=== PATIENT | female | born 1950 | race Caucasian/White ===

== ENCOUNTER 2021-11-25 16:41 | Emergency (ER) | payer OTHER, SELFPAY ==
[2021-11-25 16:58] VITALS: BP 155/78; PULSE 83; RESP 16; TEMP 37.3; O2SAT 99
[2021-11-25] MEDS: DACRIOSE EYE IRRIGATION 118 ML BOTTLE 100 ML LEFT EYE (17:25)
[2021-11-25] MEDS: FLUORESCEIN SOD 1 MG/STRIP EACH EYE (17:25)
--- NOTE | 2021-11-25 17:25 | ED.EYEPROB ---
HPI - Eye Problem General Chief complaint: Eye Problems Stated complaint: left eye pain Time Seen by Provider: 11/25/21 17:25 Source: patient Mode of arrival: ambulatory Limitations: no limitations History of Present Illness HPI Narrative: 71 y/o female presented for c/o left eye pain, onset today. She was driving to work when she felt sharp pain to left eye, she worked for 4 hours then applied Visine eye drops and rubbed the eye which worsened the pain significantly. Since then she has had red, watery eye and worse pain with opening the eye, and blurry vision. Denies headache, dizziness, n/v/f/c.Hx cataract surgery. 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 chief complaint: eye pain Related Data Home Medications Medication Instructions Recorded Confirmed atorvastatin 20 mg PO DAILY 11/25/21 11/25/21 lisinopril-hydrochlorothiazide 1 tablet PO DAILY 11/25/21 11/25/21 Allergies Allergy/AdvReac Type Severity Reaction Status Date / Time No Known Allergies Allergy Mild Unverified 12/16/18 15:44 Review of Systems Review of Systems: CONSTITUTIONAL: Denies body aches, fever, chills EYES:Endorses redness and pain to left eye, FB sensation, photophobia blurry vision ENT: Denies rhinorrhea, congestion, sore throat, or otalgia. CARDIOVASCULAR: Denies chest pain, palpitations RESPIRATORY: Denies cough or dyspnea. GASTROINTESTINAL: Denies abdominal pain, nausea, vomiting, or diarrhea. SKIN: Denies rash, itching, or wounds. MUSCULOSKELETAL: Denies back pain, joint pain, or myalgia. NEUROLOGIC: Denies headache, numbness, tingling, or weakness. PSYCH: Denies depression or anxiety. All systems reviewed & are unremarkable except as noted in HPI and below [facility] Comments At time of signature, I have reviewed and agree with nursing past medical, surgical, social and family history unless otherwise noted. Please see nursing chart for further information. There is no relevant family history pertinent to the presenting complaint Exam Narrative: GENERAL: appears in pain, no acute distress. HEAD: Normocephalic, atraumatic. EYES: left conjunctival injection, tearing, No corneal abrasion on exam. EOMI. Lid eversion showed no FB. ENT: Mucous membranes pink and moist. No rhinorrhea. NECK: Normal AROM. Supple. No lymphadenopathy. CHEST: No respiratory distress. Clear to auscultation. HEART: Regular rate and rhythm. MUSCULOSKELETAL: No bony tenderness. EXTREMITIES: Normal range of motion. SKIN: Warm, dry, no rash. Normal skin turgor. NEURO: No focal deficits. Alert and oriented x3. Steady gait PSYCH: Normal affect. Course Course Emergency Course: Patient is aware of diagnosis, understands and agrees to treatment plan. Anticipatory guidance given. Patient agrees to follow-up as directed and is aware of reasons to seek care at the emergency department. Portions of this record may have been created with voice recognition software Level of Care: Express Care Visit Vital Signs Vital signs: Vital Signs Temperature 99.2 F 11/25/21 16:58 Pulse Rate 83 11/25/21 16:58 Respiratory Rate 16 11/25/21 16:58 Blood Pressure 155/78 H 11/25/21 16:58 Pulse Oximetry 99 11/25/21 16:58 Temperature 99.2 F 11/25/21 16:58 Pulse Rate 83 11/25/21 16:58 Respiratory Rate 16 11/25/21 16:58 Blood Pressure 155/78 H 11/25/21 16:58 Pulse Oximetry 99 11/25/21 16:58 Procedures FB Removal Eye Foreign Body #1: Foreign Body Removal Date: 11/25/21 Location: eye (L) Topical anesthetic used: tetracaine Evidence of corneal penetration: No Technique: irrigation and eye wash bottle Procedure performed under: other (velazquez) Patient tolerated procedure: well and no complications Foreign Body Removal Narrative: No FB identified. pt tolerated well. MDM - Eye Problem Differential Diagnosis Differential diagnosis: Likely corneal abrasion, conjunctivitis, acute
[2021-11-25] MEDS: TETRACAINE HCL 0.5% OPHTH SOLN 4 ML BTL 1 DROP EACH EYE (17:26)
== END 2021-11-25 17:55 | disposition home or self-care (01) ==
PROVIDERS: Emergency Provider Nurse Practitioner Family; PCP Student in an Organized Health Care Education/Training Program
DX: H18.9 Unspecified disorder of cornea (principal); E78.00 Pure hypercholesterolemia, unspecified; I10 Essential (primary) hypertension
CPT/HCPCS: 99213; A9270; G0463

== ENCOUNTER 2025-03-23 16:47 | Emergency (ER) | payer OTHER, SELFPAY ==
--- NOTE | 2025-03-23 16:49 | ECG_ITS ---
Test Date: 2025-03-23 17:03:23 Measurements Intervals [place] Rate: 80 P: 62 OR: 146 QRS: 52 QRSD: 98 T: 53 QT: 366 QTc: 424 Interpretive Statements SINUS RHYTHM WITH OCCASIONAL SUPRAVENTRICULAR PREMATURE COMPLEXES INCOMPLETE RIGHT BUNDLE BRANCH BLOCK [90+ ms QRS DURATION, TERMINAL R IN V1/V2, 40+ ms S IN I/aVL/V4/V5/V6] BORDERLINE ECG No previous ECG available for comparison Electronically Signed On 03-24-2025 08:09:26 CDT by Anselmo Purcell M.D.
[2025-03-23 17:03] VITALS: BP 156/70; PULSE 72; RESP 18; TEMP 36.3; O2SAT 99
--- NOTE | 2025-03-23 17:38 | ED.EXTPRO ---
HPI - Extremity Problem General Chief complaint: Extremity Injury, Upper Stated complaint: pain in left shoulder Time Seen by Provider: 03/23/25 17:10 Source: patient and RN notes reviewed Mode of arrival: ambulatory Limitations: no limitations History of Present Illness HPI Narrative: 74-year-old female presents to the [facility] complaining of left anterior shoulder pain started this morning. Patient said her walker up around 4:00 a.m. this morning lasted about a few minutes and subsided. Patient reports pain as an aching sensation that came on randomly and then subsided shortly after. Patient said the pain had occurred a few times today it is subsided after a few minutes rapidly. Patient denies any chest pain, chest pain with exertion, shortness of breath, difficulty breathing, nausea, vomiting, epigastric pain, jaw pain, left arm pain, or any other symptoms.Patient says she has history of hypertension and hyperlipidemia that she takes medications for. Patient denies any heart disease reports family history of heart disease. Patient currently has no pain to her left shoulder. Patient believes she may have done something to her left shoulder. Related Data Home Medications ?Medication ?Instructions ?Recorded ?Confirmed ?Last Taken ?Type atorvastatin 20 mg tablet 20 mg PO DAILY 11/25/21 11/25/21 Unknown History lisinopril 20 1 tablet PO DAILY 11/25/21 11/25/21 Unknown History mg-hydrochlorothiazide 12.5 mg tablet Allergies Allergy/AdvReac Type Severity Reaction Status Date / Time No Known Allergies Allergy Mild Verified 03/23/25 17:10 Review of Systems Review of Systems: CONSTITUTIONAL: Denies fever, chills, or sweats. EYES: Denies visual changes, redness, or discharge. ENT: Denies rhinorrhea, congestion, sore throat, or otalgia. CARDIOVASCULAR: Denies chest pain, chest pain with exertion, dizziness, lightheadedness, diaphoresis, loss of consciousness palpitations, or edema. RESPIRATORY: Denies cough, wheezing, or dyspnea. GASTROINTESTINAL: Denies abdominal pain, nausea, vomiting, or diarrhea. GENITOURINARY: Denies dysuria or hematuria. SKIN: Denies rash or itching. MUSCULOSKELETAL: Denies back pain, joint pain, or myalgia. Positive for left shoulder pain. NEUROLOGIC: Denies headache, numbness, or weakness. PSYCHIATRIC: Denies anxiety or depression. All other systems reviewed are negative, except as documented in HPI. [facility] Comments At the time of my signature, I reviewed and agree with the nursing past medical, surgical, social, and family history. There is no relevant family history pertinent to the patient complaint. Exam Narrative: GENERAL: This is a well-nourished, well-developed adult, in no apparent distress. They are non ill-appearing, nontoxic appearing. HEAD: normocephalic, atraumatic. EYES: Sclera clear/white. Conjunctiva normal. Vision is grossly intact. Extraocular movements intact EARS: External ears normal, Hearing grossly intact. NOSE: External nose normal THROAT: Mucous membranes moist, NECK: Neck supple, CARDIOVASCULAR: Regular rate and rhythm without murmurs, gallops, or rubs. RESPIRATORY: Clear to auscultation. Breath sounds equal bilaterally. No wheezes, rales, or rhonchi. CHEST WALL: Chest wall is nontender. No retractions or accessory muscle use. No flail chest segment or paradoxical movements. SKIN: warm, Dry, intact with no suspicious lesions or rash, good texture and turgor. NEURO: awake, alert, and oriented to person, place and time. There were no obvious focal neurologic abnormalities. EXTREMITIES: Left shoulder: No obvious deformity, injury, swelling, bruising, redness. No bony tenderness. Nontender through full range of motion. Left radial pulse 2 +and palpable. Neurovascular status intact. Capillary refill less than 2 seconds. BACK: Nontender without deformity. No CVA tenderness. Course Course Emergency Course: Portions of this record may have been created with voice recognition software Level of Care: Express Care Visit Vital Signs Vital signs: Vital Signs Temperature 97.4 F L 03/23/25 17:03 Pulse Rate 72 03/23/25 17:03 Respiratory Rate 18 03/23/25 17:03 Blood Pressure 156/70 H 03/23/25 17:03 Pulse Oximetry 99 03/23/25 17:03 Oxygen Delivery Room Air 03/23/25 17:03 Temperature 97.4 F L 03/23/25 17:03 Pulse Rate 72 03/23/25 17:03 Respiratory Rate 18 03/23/25 17:03 Blood Pressure 156/70 H 03/23/25 17:03 Pulse Oximetry 99 03/23/25 17:03 Oxygen Delivery Room Air 03/23/25 17:03 Reviewed MDM - Extremity (Nontraumatic) MDM Narrative Medical decision making narrative: EKG is sinus rhythm with PACs. No ischemic findings. Interchest score score of 1,[place] heart score of 2, low probability of CAD, patient is appropriate for outpatient further evaluation management of her symptoms. Patient had adamantly deny having any chest pain and reports the pain is primarily in her shoulder when the pain occurs. Patient is currently chest pain and left shoulder pain free. Offered patient ER transfer her further evaluation management of her symptoms including but not limited to further lab work and patient declined. Likely patient had atypical chest pain given the location to her anterior shoulder. No pain with shoulder movement. No bony tenderness. Strict ER precautions discussed with patient especially at the pain returns, becomes constant, migrate to the middle of her chest, associated symptoms of nausea, vomiting epigastric pain, left arm pain, diaphoresis, jaw pain, any other serious concerns. Discussed physical exam findings. Advised supportive measures and signs/symptoms to go to the ER. Pt is appropriate for outpt treatment and f/u. Differential Diagnosis Differential diagnosis: Likely other (ACS, atypical chest pain, shoulder sprain, shoulder injury, arthritis) ECG Data EKG #1: Attestation EKG: I personally reviewed and interpreted this ECG as follows: ECG completion date: 03/23/25 ECG completion time: 17:03 Prior ECG tracings: not available for review EKG Interpretation: normal rate, sinus rhythm, PACs, no ST changes, normal QRS, NL axis and no acute changes Critical Care Time Critical Care Time Critical Care Time: No Discharge Plan Discharge Clinical Impression: Atypical chest pain Patient Disposition: Home Condition: Stable Instructions: Antibiotic Form, Chest Pain (ED) Additional Instructions: Your EKG did not show any signs of a heart attack. Please follow-up with your PCP in 3-5 days for see a silverlight developer for further evaluation management of her chest pain. Continue taking her medicines as directed directed. If your chest pain returns, remains constant, does not improve quickly, chest pain with exertion difficulty breathing, nausea, vomiting, epigastric pain, left arm pain, jaw pain, extreme sweaty, or any serious concerns please go to the ER immediately. Patient Language: Portuguese Prescriptions: No Action atorvastatin 20 mg tablet 20 mg PO DAILY lisinopril-hydrochlorothiazide 20-12.5 mg tablet 1 tablet PO DAILY Follow-up/Referrals: Anselmo Purcell MD [Physician] - Justin,DO Mauro [Primary Care Provider] - Time of Disposition: 17:26
== END 2025-03-23 17:33 | disposition home or self-care (01) ==
PROVIDERS: PCP Student in an Organized Health Care Education/Training Program
DX: R07.89 Other chest pain (principal); I10 Essential (primary) hypertension; E78.5 Hyperlipidemia, unspecified
CPT/HCPCS: 93005; 99213; G0463